=== PATIENT | male | born 1995 ===

== ENCOUNTER 2017-12-18 11:44 | Outpatient (CLI) | payer OTHER | END 2017-12-18 11:45 | disposition home or self-care (01) | LOC: BICRAD 11:44 | DX: M25.562 Pain in left knee (principal); S82.035A Nondisplaced transverse fracture of left patella, initial encounter for closed fracture; S82.045A Nondisplaced comminuted fracture of left patella, initial encounter for closed fracture; W19.XXXA Unspecified fall, initial encounter ==